=== PATIENT | female | born 2000 | race African-American/Black ===

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

== ENCOUNTER 2022-12-01 12:07 | Emergency (ER) | payer OTHER ==
[2022-12-01 12:17] VITALS: BMI 21.1
[2022-12-01 13:15] LABS: HEMATOCRIT 32.4 % (32.4-45.2); HEMOGLOBIN 9.9 GM/dL (10.7-15.3); MCH 20.9 pg (25.7-33.7); MCHC 30.7 g/dl (32.0-36.0); MEAN CELL VOLUME 67.9 fl (80-96); MEAN PLT VOLUME 8.5 fl (7.5-11.1); PLATELET COUNT 363 10^3/uL (134-434); RBC 4.77 M/mm3 (3.60-5.2); RDW 15.9 % (11.6-15.6); WHITE BLOOD COUNT 3.8 K/mm3 (4.0-10.0)
[2022-12-01] MEDS ORDERED: ACETAMINOPHEN 1000 MG/100 ML BAG IVPB ONE (13:15)
[2022-12-01 13:17] LABS: EPI CELLS >36 /uL (0-25.1); HYALINE CASTS 0 /uL (0-3.1); PH,URINE 6.5 (5.0-8.0); URINE APPEARANCE CLOUDY; URINE BACTERIA 8394 /uL (0-1359); URINE BILIRUBIN 1+ (NEGATIVE); URINE COLOR RED; URINE GLUCOSE (UA) NEGATIVE (NEGATIVE); URINE KETONE NEGATIVE (NEGATIVE); URINE LEUK ESTERASE 1+ (NEGATIVE); URINE NITRITE NEGATIVE (NEGATIVE); URINE PROTEIN 3+ (NEGATIVE); URINE RBC 3184 /uL (0-23.9); URINE UROBILINOGEN 0.2 mg/dL (0.2-1.0); URINE WBC 88 /uL (0-25.8)
[2022-12-01 13:18] LABS: HCG,QUALITATIVE URINE Negative
[2022-12-01] MEDS ORDERED: ACETAMINOPHEN INJECTION 100 ML IVPB ONE (13:19)
[2022-12-01 13:47] LABS: POTASSIUM 3.7 mmol/L (3.5-5.1)
[2022-12-01 13:48] LABS: BLOOD UREA NITROGEN 8.5 mg/dL (7-18); CALCIUM 9.1 mg/dL (8.5-10.1)
[2022-12-01 13:52] LABS: CREATININE 0.6 mg/dL (0.55-1.3)
[2022-12-01 13:57] LABS: ANISOCYTOSIS 2+; MACROCYTOSIS 0
[2022-12-01 15:35] VITALS: BP 117/73; PULSE 57; RESP 16; TEMP 97.1
== END 2022-12-01 17:07 | disposition home or self-care (01) ==
LOC: JER 12:07
PROC: 3E033NZ Introduction of Analgesics, Hypnotics, Sedatives into Peripheral Vein, Percutaneous Approach (ICD-10-PCS; principal; 2022-12-01)
DX: O20.9 Hemorrhage in early pregnancy, unspecified (principal); O26.891 Other specified pregnancy related conditions, first trimester; R10.30 Lower abdominal pain, unspecified; Z3A.00 Weeks of gestation of pregnancy not specified
CPT/HCPCS: 36415; 76830-TC; 80048; 81003; 84703; 85025; 86850; 86900; 86901; 87086; 87186; 99284-25